=== PATIENT | female | born 1990 | race Caucasian/White ===

== ENCOUNTER 2017-06-07 15:46 | Emergency (ER) | payer MEDICAID, SELFPAY ==
[2017-06-07 16:09] VITALS: BP 124/98; PULSE 126; RESP 20; TEMP 36.8; O2SAT 98; BMI 29.0
--- NOTE | 2017-06-07 16:54 | HMH.EDUTC ---
[facility] [place] Disposition Clinical Impression: Strep pharyngitis Disposition: Home, Self-Care Condition on Discharge: Good Instructions: DI for Strep Throat Additional Instructions: * Start antibiotic EMERALD and be sure to take as ordered for the FULL length of time although you should start to feel better in 24-48 hours. * change toothbrush and toothpaste 24-48 hours after starting antibiotic * Monitor Temp. Tylenol every 4 hours as needed no more then 5 times a day or 4000mg in 24 hours and/or ibuprofen every 6 hours as needed no more then 3200mg in 24 hours (as long as your primary care doctor has told you that it is ok to take both) for fever/aches/pain. ER if fever no less than 101 despite tylenol and Ibuprofen * Encourage fluids, water, gatorade, powerade, pedialyte if infant/toddler/child * cold fluids, popsicles, ice cream feel good * you are contagious until you have taken the antibiotic for 24 hours. * Avoid kissing anyone, including parents. No eating or drinking after anyone. You are contagious. Follow up IMMEDIATELY for new or worsening symptoms OR no noticeable improvement over the next 24-48 hours. 911 for difficulty breathing or swallowing Prescriptions: Amoxicillin [Amoxicillin 500mg Tab] 500 mg PO BID #20 tab Forms: Work/School Release Time of Disposition: 17:24 Medical Decision Making - Geovanny Inquiry Pt receiving controlled substance: No Vital Signs: 06/07/17 16:09 Temperature 98.2 F Temperature Source Oral Pulse Rate [Right Radial] 126 H Respiratory Rate 20 Blood Pressure [Right Arm] 124/98 Blood Pressure Mean [Right Arm] 106 Blood Pressure Source [Right Arm] Automatic Cuff Blood Pressure Position [Right Arm] Sitting 02 Sat by Pulse Oximetry 98 Oxygen Delivery Method Room Air - Lab Data Lab results reviewed: Yes: I reviewed the patient's lab results. Lab Results 06/07/17 17:01: Strep Scn Rapid Clinic Positive A [facility] [place] HPI - General Stated complaint: knot on left side of neck Time Seen by Provider: 06/07/17 16:54 Mode of Arrival: Family Vehicle Source of Information: Patient Limitations: No Limitations Description of Symptoms (Recalled from Triage Doc. by RN): PT C/O KNOT ON LEFT SIDE OF NECK FOR 1 WEEK. HEENT Symptoms (Recalled from RN notes): No Resp Symptoms (Recalled from RN notes): No Skin Symptoms (Recalled from RN notes): Yes (KNOT ON LEFT SIDE OF NECK) MS Symptoms (Recalled from RN notes): No Functional Status (Recalled from RN notes): NA - History of Present Illness Provider Complaint: c/o swelling left side of neck. She thinks it is a lymph node. First noticed one week ago but last night, sore throat, aches, chills started. Feeling worse today. No treatment prior to arrival. No known sick contacts. Denies difficulty swallowing. - Related Data Home Medications Medication Instructions Recorded Confirmed Levonorgestrel-Ethin Estradiol 1 tab PO DAILY 06/07/17 06/07/17 [Levonor-Eth Estrad 0.1-0.02 mg] Previous Rx's Medication Instructions Recorded Amoxicillin [Amoxicillin 500mg Tab] 500 mg PO BID #20 tab 06/07/17 Allergies Allergy/AdvReac Type Severity Reaction Status Date / Time tramadol [From ULTRAM] Allergy Unknown Verified 06/07/17 16:13 - Worker's Comp Is this a Worker's Comp case?: No [facility] History I have reviewed the patient's past medical history: Yes Medical History: Denies:: Cancer, Diabetes Mellitus Type 1, Diabetes Mellitus Type 2, Hypertension, MRSA Other Surgeries: Yes: , Other (cholecystectomy) Amputation: No Fractures: No - Social History Smoking Status: Current every day smoker Tobacco Type: cigarettes Alcohol Intake: never - Psychiatric History Expresses thoughts of harming self/others: None Suicide Plan Description: No Plan ROS Obtained: Yes Systems reviewed as appropriate & no additional complaints - Constitutional Constitutional: Reports as per HPI, Reports body ache, Reports chills, Reports fatigue,
[2017-06-07 17:13] LABS: UTC Strep Screen (Rapid) Positive (Negative)
[2017-06-07 17:25] VITALS: BP 120/85; PULSE 115; RESP 18; TEMP 36.9; O2SAT 100
== END 2017-06-07 17:27 | disposition home or self-care (01) ==
PROVIDERS: Emergency Provider Nurse Practitioner Family
DX: J02.0 Streptococcal pharyngitis (principal); F17.210 Nicotine dependence, cigarettes, uncomplicated
CPT/HCPCS: 87880; 99201